=== PATIENT | female | born 1985 | race Caucasian/White ===

== ENCOUNTER → 2018-04-10 08:11 | Outpatient (CLI) | payer BC, SELFPAY ==
--- NOTE | 2018-04-10 08:13 | US_ITS ---
US OB transvaginal HISTORY: ITS.REASON: US OB Dates ORDERING PHYSICIAN: Mejia Morales MD PATIENT AGE: 32 years COMPARISON: None FINDINGS: There is a single live fetus with an average ultrasound age of 13 weeks 0 days. BPD 30 weeks 3 days, HC 30 weeks 1 day, abdominal circumference 12 weeks 4 days, FL 30 weeks 1 day. [place]-rump length 12 weeks 1 day. heart and body motion is noted. Placenta is noted forming anteriorly. Heart rate is 151 bpm. IMPRESSION: Live IUP with an average ultrasound age of 13 weeks and 0 days with an estimated due date of 10/16/2018
== END ==
PROVIDERS: PCP Internal Medicine Adolescent Medicine; Visit Provider Nurse Practitioner Obstetrics & Gynecology
DX: O26.841 Uterine size-date discrepancy, first trimester (principal)
CPT/HCPCS: 76817

== ENCOUNTER → 2018-06-07 10:16 | Outpatient (CLI) | payer BC, SELFPAY ==
--- NOTE | 2018-06-07 10:18 | US_ITS ---
US OB /maternal detail: INDICATION: ITS.REASON: US OB Complete ORDERING PHYSICIAN: Mejia Morales MD PATIENT AGE: 32 years TECHNIQUE: ultrasound transabdominal scanning. COMPARISON: No previous relevant studies. FINDINGS: Single viable intrauterine gestation. Cephalic position. Placenta: Anterior High placenta grade 1. There is average amount fluid. The cervix appears satisfactory. Closed and measuring 6 cm in length. The increased cervical length couldn't be artificially created from a full urinary bladder Complete survey performed and was unremarkable on the submitted images as in PACS. No discrete anomalies identified on survey imaging by technologist. Active fetus. Three-vessel cord with satisfactory umbilical cord insertion. 4- chamber heart noted. Survey of brain & ventricles unremarkable. Face and neck survey unremarkable. Diaphragm and chest views unremarkable. Abdomen: Both kidneys noted and unremarkable. Stomach noted and satisfactory. Spine: Survey of the spine satisfactory with no anomalies identified nor imaged. Both arms and legs noted. Amniotic Fluid: Adequate. Maternal adnexa: No significant findings. Measurements: Average ultrasound age 20w5d. Gestational Age 21w2d. Estimated due date by ultrasound age 0510/20/2018. Estimated weight 369 grams. BPD = 21w0d OFD = 21w2d HC = 20w3d AC = 21w0d FL = 20w3d Growth Percentile= 17 percentile Heart Rate = 138 Cerebellum = 21w3d Humerus = 20w0d HC/AC is 1.13 (`.06-1.25). CI is 77% (70-86%). FL/BPD is 67%. FL/AC is 21% (20-24%). IMPRESSION: There is a single live fetus which is in cephalic presentation. Average ultrasound age is 20 weeks and 5 days. Fetus is active with no obvious anomalies. All parameters correlate. Please see above for details
== END ==
PROVIDERS: PCP Internal Medicine Adolescent Medicine; Visit Provider Nurse Practitioner Obstetrics & Gynecology
DX: Z36.0 Encounter for antenatal screening for chromosomal anomalies (principal)
CPT/HCPCS: 76811

== ENCOUNTER → 2018-07-17 08:10 | Outpatient (CLI) | payer BC, SELFPAY ==
[2018-07-17 09:04] LABS: Glucose,Fasting 90 mg/dL (60-105)
[2018-07-17 09:59] LABS: Basophils % 0.4 % (0.1-2.0); Eosinophils # 0.1 K/mm3 (0.0-0.4); Hematocrit 36.3 % (37.0-47.0); Hemoglobin 11.3 g/dL (12.2-16.2); Lymphocytes # 1.5 K/mm3 (0.7-4.5); Lymphocytes % 17.7 % (10-50); Mean Corpuscular HGB Conc 31.1 g/dL (31.8-35.4); Mean Corpuscular Hemoglobin 27.6 pg (27.0-31.2); Mean Corpuscular Volume 88.9 fl (81-99); Mean Platelet Volume 7.1 fl (7.4-10.4); Monocytes # 0.4 K/mm3 (0.1-1.0); Monocytes % 4.4 % (1.7-9.3); Neutrophils # 6.4 K/mm3 (1.8-7.8); Neutrophils % 76.5 % (37.0-80.0); Platelet Count 308 K/mm3 (142-424); Red Blood Count 4.08 M/mm3 (4.20-5.40); Red Cell Distribution Width 14.6 % (11.5-17.5); White Blood Count 8.4 K/mm3 (4.8-10.8)
[2018-07-17 10:57] LABS: Glucose 1 Hour 154 mg/dL (74-106)
[2018-07-18 15:26] LABS: Rapid Plasma Reagin Ab Titer Non Reactive (NonRea<1:1); Rubella Antibodies, IgG <0.90 index (Immune >0.99)
[2018-07-18 15:27] LABS: HIV Screen 4th Generation wRfx Non Reactive (Non Reactive)
[2018-07-19 09:48] LABS: Hepatitis B Surface Antigen Negative (Negative); Hepatitis C Antibody <0.1 s/co ratio (0.0-0.9)
== END ==
PROVIDERS: Visit Provider Nurse Practitioner Obstetrics & Gynecology
DX: Z34.90 Encounter for supervision of normal pregnancy, unspecified, unspecified trimester (principal); Z3A.01 Less than 8 weeks gestation of pregnancy
CPT/HCPCS: 36415; 82951; 85025; 86592; 86703; 86762; 86850; 87340; 87380; G0432

== ENCOUNTER → 2018-07-20 08:03 | Outpatient (CLI) | payer BC, SELFPAY ==
[2018-07-20 08:27] LABS: Glucose,Fasting 75 mg/dL (60-105)
[2018-07-20 09:49] LABS: Glucose 1 Hour 184 mg/dL (74-106)
[2018-07-20 11:31] LABS: Glucose 2 Hour 149 mg/dL (74-106)
[2018-07-20 12:09] LABS: Glucose 3 Hour 116 mg/dL (74-106)
== END ==
PROVIDERS: Visit Provider Nurse Practitioner Obstetrics & Gynecology
DX: O99.814 Abnormal glucose complicating childbirth (principal)
CPT/HCPCS: 36415; 82951

== ENCOUNTER → 2018-09-19 16:54 | Outpatient (CLI) | payer BC, SELFPAY | LOC: LAB 16:55 → LAB.DROPOF 09-20 10:00 | PROVIDERS: Visit Provider Nurse Practitioner Obstetrics & Gynecology | DX: Z34.90 Encounter for supervision of normal pregnancy, unspecified, unspecified trimester (principal) | CPT/HCPCS: 86403 ==

== ENCOUNTER 2018-09-26 19:16 | Inpatient (IN) ==
[2018-09-26 19:48] VITALS: BP 159/82
[2018-09-26 19:51] LABS: Microscopic, Urine URINE MICROSCOPIC (MICROSCOPIC)
[2018-09-26 19:52] LABS: Appearance,Urine CLEAR (Clear); Bilirubin,Urine Negative (Negative); Blood, Urine TRACE-L (Negative); Color,Urine YELLOW (Yellow); Glucose,Urine (UA) Negative (Negative); Ketones,Urine Negative (Negative); Leukocyte Esterase,Urine Negative (Negative); Protein,Urine Negative (Negative); Urobilinogen,Urine 0.2 EU/dl (0.2)
[2018-09-26 20:03] LABS: Amphetamine/Metha Screen,Urine Negative ng/mL (<1000); Barbiturates Screen,Urine Negative ng/mL (<200); Benzodiazepines Screen,Urine Negative ng/mL (<200); Cannabinoid Screen,Urine Negative ng/mL (<50); Cocaine Screen,Urine Negative ng/mL (<300); Methadone Screen,Urine Negative ng/mL (<300); Opiate Screen,Urine Negative ng/mL (<300); Phencyclidine Screen,Urine Negative ng/mL (<25)
[2018-09-26 20:22] LABS: Bacteria,Urine 1+ /lpf
[2018-09-26 21:24] LABS: Basophils % 0.2 % (0.1-2.0); Eosinophils % 0.5 % (0.1-12.0); Hematocrit 34.3 % (37.0-47.0); Hemoglobin 11.5 g/dL (12.2-16.2); Lymphocytes # 1.4 K/mm3 (0.7-4.5); Lymphocytes % 18.9 % (10-50); Mean Corpuscular HGB Conc 33.4 g/dL (31.8-35.4); Mean Corpuscular Hemoglobin 28.1 pg (27.0-31.2); Mean Corpuscular Volume 84.3 fl (81-99); Mean Platelet Volume 7.5 fl (7.4-10.4); Monocytes # 0.5 K/mm3 (0.1-1.0); Neutrophils # 5.6 K/mm3 (1.8-7.8); Neutrophils % 74.4 % (37.0-80.0); Platelet Count 293 K/mm3 (142-424); Red Blood Count 4.07 M/mm3 (4.20-5.40); Red Cell Distribution Width 14.5 % (11.5-17.5); White Blood Count 7.6 K/mm3 (4.8-10.8)
--- NOTE | 2018-09-27 00:16 | Procedure Note ---
- Delivery Note Delivery Date:: 09/26/18 Delivery Time:: 23:52 Anesthesia Type: None Was labor medically induced?: No Induction method: none Infant delivered prior to 39 weeks?: Yes Justification for early elective delivery:: Active Labor Gender: Male at 1 minute: 8 at 5 minutes: 9 Delivery Procedure:: She is a 33-year-old 4 para 2 aborta 1 at 37 and 1 weeks gestational age. She ruptured membranes early in the evening and this was confirmed area She progressed rapidly to full dilation and delivered spontaneously a liveborn male child at 11:52 PM on the evening of September 26, 2018. On deliver the head the anterior shoulder then delivered followed by the rest the 's body atraumatically. The cord was clamped and cut and the baby was placed on the mother's abdomen for further care. The nurses assigned Apgars of 8 at 1 minute and 9 at 5 minutes. We then obtained cord blood as well as cord pH. Using gentle traction on the cord and countertraction the fundus I was able to easily deliver the placenta intact. It had a normal three-vessel cord. She had a small second-degree perineal laceration that was repaired with 3-0 Vicryl Rapide suture to the superficial tissues and 2-0 Vicryl suture to the deep tissues. She has B+ blood, she is rubella immune and was group A streptococcus negative. She plans to breast-feed. Her motor driver is Dr. Luciano. Estimated blood loss was approximately 400 cc. Laceration:: vaginal Placental Delivery Description: Spontaneous
[2018-09-27 06:42] LABS: Hematocrit 34.7 % (37.0-47.0); Hemoglobin 11.3 g/dL (12.2-16.2)
--- NOTE | 2018-09-27 08:50 | Progress Note ---
Internal Medicine - PN: Subj *Date: 09/27/18 *Time: 08:48 Interval history: She is doing very well this morning. She is eating and drinking and ambulating. She is breast-feeding. Her lochia is normal. Exam Vital signs and Labs for Last 24 Hours: Temp Pulse Resp BP Pulse Ox 99.4 F 84 18 159/82 H 97 09/26/18 19:46 09/26/18 19:46 09/26/18 19:46 09/26/18 19:46 09/26/18 19:46 Laboratory Results - last 24 hr 09/26/18 19:25: Urine Color Yellow, Urine Appearance Clear, Urine pH 6.0, Ur Specific [place] 1.010, Urine Protein Negative, Urine Glucose (UA) Negative, Urine Ketones Negative, Urine Blood Trace-l, Urine Nitrate Negative, Urine Bilirubin Negative, Urine Urobilinogen 0.2, Ur Leukocyte Esterase Negative, Urine RBC 3-5, Ur Squamous Epith Cells 3-5, Urine Bacteria 1+ 09/26/18 19:25: Urine Opiates Screen Negative, Urine Methadone Screen Negative, Ur Barbituates Screen Negative, Ur Phencyclidine Scrn Negative, Ur Amphetamines Screen Negative, U Benzodiazepines Scrn Negative, Urine Cocaine Screen Negative, U Marijuana (THC) Screen Negative 09/26/18 19:35: Membrane Rupture Positive A 09/26/18 21:00: WBC 7.6, RBC 4.07 L, Hgb 11.5 L, Hct 34.3 L, MCV 84.3, MCH 28.1, MCHC 33.4, RDW 14.5, Plt Count 293, MPV 7.5, Neut % (Auto) 74.4, Lymph % (Auto) 18.9, [place] % (Auto) 6.0, Eos % (Auto) 0.5, Baso % (Auto) 0.2, Neut # (Auto) 5.6, Lymph # (Auto) 1.4, [place] # (Auto) 0.5, Eos # (Auto) 0.0, Baso # (Auto) 0.0 09/26/18 21:00: Blood Type B Positive, Antibody Screen Negative 09/27/18 00:31: Cord ABG pH 7.37 09/27/18 06:25: Hgb 11.3 L, Hct 34.7 L I & O for Last 24 hours: Intake & Output 09/24/18 09/25/18 09/26/18 09/27/18 11:59 11:59 11:59 11:59 Weight 197 lb - Constitutional no acute distress Assessment and Plan (1) Normal delivery at term Current visit: Yes Status: Acute Category: Medical Code(s): O80 - Encounter for full-term uncomplicated delivery - Assessment and plan all Dx Assessment and Plan for all problems:: She is doing well this morning. We will see how she does over the next 24 hours. If the baby is ready to go then we will send her home tomorrow. Otherwise we will send her home in 48 hours.
--- NOTE | 2018-09-28 09:18 | Discharge Summary ---
General - General Admission date:: 09/26/18 Discharge date: 09/28/18 HPI HPI: She is a 33-year-old 4 para 3 aborta 1 who was 37 weeks gestational age. She came in in active labor with ruptured membranes. Hospital Course Hospital Course: She rapidly progressed to full dilation and delivered spontaneously a liveborn male child at 11:52 PM in the evening of September 26, 2018. The baby was a liveborn male child with Apgars of 8 at 1 minute and 9 at 5 minutes. He weighed 5 pounds 1 ounce and was 18 inches long. She has done well and has remained afebrile throughout her hospitalization. She is eating and drinking and ambulate in. She is breast- feeding. She is discharged home to follow-up with me in approximately 2 weeks time. She will continue with her vitamins and iron. Her condition on discharge is stable. Objective Vital signs: Temp Pulse Resp BP Pulse Ox 99.4 F 84 18 159/82 H 97 09/26/18 19:46 09/26/18 19:46 09/26/18 19:46 09/26/18 19:46 09/26/18 19:46 no acute distress DS: Diagnosis - Discharge Diagnosis (1) Normal delivery at term Status: Acute Discharge Plan - Patient Discharge Instructions ACTIVITY: No heavy lifting DIET: continue same diet - Follow up Plan Disposition: Home, Self-Half-Way Medications: Home Medications Medication Instructions Recorded Confirmed Type cod liver oil capsule 1 cap PO DAILY 05/02/18 09/26/18 History lactobacillus combination no.6 4 1 cap PO DAILY tab 05/02/18 09/27/18 History billion cell tablet 1 tab PO DAILY 05/02/18 09/26/18 History vitamin,calcium,xddjbtgu-vonz-xbyin acid tablet Ferrous Sulfate 325 mg PO DAILY 09/26/18 09/26/18 History Prescriptions/Medication Reconciliation: Continued vitamin,calcium,pqauieud-cxue-zbkhj acid tablet 1 tab PO DAILY cod liver oil capsule 1 cap PO DAILY lactobacillus combination no.6 4 billion cell tablet 1 cap PO DAILY tab Ferrous Sulfate 325 mg PO DAILY
== END 2018-09-28 18:35 | disposition home or self-care (01) | DRG 807 ==
LOC: OBOUT 19:16 → OB 19:20
PROVIDERS: ADMIT Nurse Practitioner Obstetrics & Gynecology; ATTEND Nurse Practitioner Obstetrics & Gynecology

== ENCOUNTER 2019-10-25 02:03 | Emergency (ER) | payer BC, SELFPAY ==
[2019-10-25 02:22] VITALS: BP 155/101; PULSE 113; RESP 16; TEMP 37; O2SAT 99; BMI 30.5
--- NOTE | 2019-10-25 02:34 | CT_ITS ---
PROCEDURE: CT LOWER LEG LT W CON CLINICAL HISTORY: abscess Pain and edema and swelling in the inner mid thigh, redness and swelling, hot mass with possible abscess COMPARISON: No exams were available for comparison TECHNIQUE: 120 mL Optiray 350 Axial images obtained with sagittal and coronal reformats. All CT scans at the facility use one or more dose reduction, viz: automated exposure control, ma/kV adjustment per patient size (including targeted exams where dose is matched to indication, i.e. head), or iterative reconstruction technique. FINDINGS: Axial images are obtained from the mid pelvic region to the upper tib fib area. Contrast was utilized. There is some mild subcutaneous soft tissue swelling in the mid medial thigh. No abscess evident. No soft tissue mass. No bony destructive process. A BB was used to marked the area of greatest induration showing some cutaneous thickening. There is also some minimal subcutaneous stranding of the fat laterally at this level. No muscular mass evident. There are few scattered small nodes in the inguinal region. Small fluid collection noted in the region of the cervix on the left and could be due to a prominent nabothian cyst measuring 13 mm IMPRESSION: Soft tissue swelling with stranding of the subcutaneous fat and thickening of the scan in the mid and lower thigh region without obvious abscess. There is also some mild stranding of the subcutaneous fat in the mid thigh laterally Dictated by: Christian Blanc MD 10/25/2019 05:59 Electronically signed by Christian Blanc MD in [place] 10/25/2019 05:59
[2019-10-25 02:38] LABS: Microscopic, Urine URINE MICROSCOPIC (MICROSCOPIC)
[2019-10-25 02:41] LABS: Appearance,Urine CLEAR (Clear); Bilirubin,Urine Negative (Negative); Blood, Urine TRACE-I (Negative); Color,Urine YELLOW (Yellow); Glucose,Urine (UA) Negative (Negative); Ketones,Urine Negative (Negative); Leukocyte Esterase,Urine Negative (Negative); Nitrate,Urine Negative (Negative); Protein,Urine Negative (Negative); Specific Gravity, Urine 1.025 (1.005-1.030); Urobilinogen,Urine 0.2 EU/dl (0.2)
[2019-10-25 02:44] LABS: Basophils # 0.1 K/mm3 (0-0.2); Basophils % 1.3 % (0.1-2.0); Eosinophils # 0.2 K/mm3 (0.0-0.4); Hematocrit 41.6 % (37.0-47.0); Hemoglobin 13.3 g/dL (12.2-16.2); Lymphocytes # 1.3 K/mm3 (0.7-4.5); Lymphocytes % 19.1 % (10-50); Mean Corpuscular Volume 90.5 fl (81-99); Mean Platelet Volume 7.6 fl (7.4-10.4); Monocytes # 0.3 K/mm3 (0.1-1.0); Monocytes % 4.7 % (1.7-9.3); Neutrophils # 4.9 K/mm3 (1.8-7.8); Platelet Count 292 K/mm3 (142-424); Red Cell Distribution Width 13.5 % (11.5-17.5); White Blood Count 6.8 K/mm3 (4.8-10.8)
[2019-10-25 02:46] LABS: Bacteria,Urine Trace /lpf; Urine Pregnancy, HCG Qual. Negative (Negative)
[2019-10-25 02:51] LABS: Alanine Aminotransferase 23 U/L (12-78); Albumin/Globulin Ratio 1.4 (1.1-1.8); Alkaline Phosphatase 114 U/L (38-126); Anion Gap 12.3 mEq/L (5-15); Aspartate Amino Transferase 23 U/L (14-36); Bilirubin,Total 0.6 mg/dl (0.2-1.3); Blood Urea Nitrogen 14 mg/dl (7-17); Calcium 9.8 mg/dl (8.4-10.2); Carbon Dioxide 29 mmol/L (22.0-30.0); Chloride 102 mmol/L (98-107); Creatinine Clearance Estimated 137 mL/min (50-200); Estimated Glomerular Filt Rate 82 ml/min (>60); GFR (African American) 99 ML/MIN (>60); Globulin 3.7 g/dL (1.3-3.2); Glucose 132 mg/dl (74-100); Potassium 3.3 mmoL/L (3.5-5.1); Sodium 140 mmol/L (136-145); Total Protein,Serum 8.7 g/dl (6.3-8.2)
[2019-10-25 03:10] LABS: Erythrocyte Sedimentation Rate 17 mm/hr (0-20)
--- NOTE | 2019-10-25 04:05 | HMH.EDSKAF ---
ED Disposition Clinical Impression: Cellulitis Qualifiers: Site of cellulitis: extremity Site of cellulitis of extremity: lower extremity Laterality: left Qualified Code(s): L03.116 - Cellulitis of left lower limb Disposition: Home, Self-Care Condition on Discharge: Good Instructions: Cellulitis Additional Instructions: use meds and see pcp for follow up Prescriptions: Sulfamethoxazole/Trimethoprim [Bactrim DS tablet] 1 each PO BID #14 tab Transmission Status: Pending to [facility] Minocycline HCl [Minocycline HCl 100mg Tab*] 100 mg PO BID #20 tab Transmission Status: Pending to [facility] Referrals: Jordin Shabazz MD [Primary Care Provider] - - Critical Care Critical Care Time: No Attestation: On 10/25/19, the high probability of a clinically significant, sudden or life threatening deterioration of the following system(s) required my full and direct attention, intervention and personal management. The time I documented below is in addition to time spent performing reported procedures but includes the following listed in this critical care notation. Medical Decision Making - Medical Records Medical records reviewed: Yes: I reviewed the patient's medical records. - [place] Inquiry Pt receiving controlled substance: No Vital Signs: 10/25/19 02:22 Temperature 98.6 F Temperature Source Oral Pulse Rate [Right] 113 H Respiratory Rate 16 Blood Pressure [Right Arm] 155/101 H Blood Pressure Mean [Right Arm] 119 Blood Pressure Source [Right Arm] Automatic Cuff Blood Pressure Position [Right Arm] Sitting 02 Sat by Pulse Oximetry 99 Oxygen Delivery Method Room Air - Lab Data Lab results reviewed: Yes: I reviewed the patient's lab results. Lab Results 10/25/19 02:33: Urine Color Yellow, Urine Appearance Clear, Urine pH 6.0, Ur Specific [place] 1.025, Urine Protein Negative, Urine Glucose (UA) Negative, Urine Ketones Negative, Urine Blood Trace-i, Urine Nitrate Negative, Urine Bilirubin Negative, Urine Urobilinogen 0.2, Ur Leukocyte Esterase Negative, Urine WBC 3-5, Ur Squamous Epith Cells 5-10, Urine Bacteria Trace 10/25/19 02:33: WBC 6.8, RBC 4.60, Hgb 13.3, Hct 41.6, MCV 90.5, MCH 29.0, MCHC 32.0, RDW 13.5, Plt Count 292, MPV 7.6, Neut % (Auto) 72.0, Lymph % (Auto) 19.1, [place] % (Auto) 4.7, Eos % (Auto) 3.0, Baso % (Auto) 1.3, Neut # (Auto) 4.9, Lymph # (Auto) 1.3, [place] # (Auto) 0.3, Eos # (Auto) 0.2, Baso # (Auto) 0.1, ESR 17 10/25/19 02:33: Urine HCG, Qual Negative 10/25/19 02:33: Sodium 140, Potassium 3.3 L, Chloride 102, Carbon Dioxide 29, Anion Gap 12.3, BUN 14, Creatinine 0.80, Estimated Creat Clear 137, Estimated GFR 82, Est GFR ( Amer) 99, Glucose 132 H, Calcium 9.8, Total Bilirubin 0.6, AST 23, ALT 23, Alkaline Phosphatase 114, C-Reactive Protein 43.0 H, Total Protein 8.7 H, Albumin 5.0, Globulin 3.7 H, Albumin/Globulin Ratio 1.4 Result diagrams: 10/25/19 02:33 10/25/19 02:33 Orders (Tests/Meds): ED MEDICATIONS Generic Name Dose Route Start Last Admin Trade Name Freq PRN Reason Stop Dose Admin Sodium Chloride 1,000 mls @ 999 mls/hr 10/25/19 02:45 10/25/19 02:53 Sod Chlor 0.9% 1000ml Bag IV 10/25/19 03:45 999 mls/hr .Q1H1M ANUEL Administration Discontinued Medications Generic Name Dose Route Start Last Admin Trade Name Freq PRN Reason Stop Dose Admin Acetaminophen/Codeine Phosphate 1 karma 10/25/19 06:29 Acetaminophen W/Codeine #3 Take Home Pack (6) PO 10/25/19 06:30 ONCE ONE Vancomycin HCl 1,750 mg/ 250 mls @ 125 mls/hr 10/25/19 04:07 10/25/19 04:15 Sodium Chloride IV 10/25/19 06:06 125 mls/hr ONCE ONE Administration Protocol Ioversol 120 ml 10/25/19 04:02 10/25/19 04:03 Rad-Optiray 350 150ml Vial IV 10/25/19 04:03 120 ml ONCE ONE Administration Ketorolac Tromethamine 30 mg 10/25/19 02:33 10/25/19 02:53 Toradol 30mg/Ml Vial IV 10/25/19 02:34 30 mg ONCE ONE Administration Sodium Chlorid
[2019-10-25 06:45] VITALS: BP 135/75; PULSE 66; RESP 14; TEMP 37; O2SAT 100
== END 2019-10-25 06:48 | disposition home or self-care (01) ==
PROVIDERS: Emergency Provider Emergency Medicine; PCP Internal Medicine Adolescent Medicine
DX: L03.116 Cellulitis of left lower limb (principal); J45.909 Unspecified asthma, uncomplicated
CPT/HCPCS: 73701; 80053; 81001; 81025; 85025; 85651; 86140; 96365; 96366; 96367; 96375; 99283; J3370; Q9967

== ENCOUNTER → 2019-10-28 08:10 | Outpatient (CLI) | payer BC, SELFPAY ==
--- NOTE | 2019-10-28 08:19 | XR_ITS ---
PROCEDURE: XR FOOT WT BEARING LT 3V CLINICAL INDICATION: pain COMPARISON: FTL3 FOOT-LT-3 VIEWS from 12/03/2015 FTL3 FOOT-LT-3 VIEWS from 12/24/2015 FINDINGS: No fracture or dislocation. No lytic or blastic change. There is normal mineralization. The joint spaces are well-preserved. No significant degenerative/arthritic changes. No erosive changes evident. Other findings:None. IMPRESSION: Negative left foot Dictated by: Christian Blanc MD 10/28/2019 09:04 Electronically signed by Christian Blanc MD in [place] 10/28/2019 09:04
--- NOTE | 2019-10-28 08:19 | XR_ITS ---
PROCEDURE: XR FOOT WT BEARING RT 3V CLINICAL INDICATION: pain COMPARISON: FTL3 FOOT-LT-3 VIEWS from 12/03/2015 FTL3 FOOT-LT-3 VIEWS from 12/24/2015 FINDINGS: No fracture or dislocation. No lytic or blastic change. There is normal mineralization. The joint spaces are well-preserved. No significant degenerative/arthritic changes. No erosive changes evident. Other findings:None. IMPRESSION: Negative right Dictated by: Christian Blanc MD 10/28/2019 09:03 Electronically signed by Christian Blanc MD in [place] 10/28/2019 09:03
== END ==
PROVIDERS: PCP Internal Medicine Adolescent Medicine; Visit Provider Podiatrist
DX: M77.41 Metatarsalgia, right foot (principal); M77.51 Other enthesopathy of right foot and ankle; G57.61 Lesion of plantar nerve, right lower limb
CPT/HCPCS: 73630

== ENCOUNTER → 2020-01-24 13:34 | Outpatient (CLI) | payer BC, SELFPAY ==
[2020-01-24 13:37] LABS: Microscopic, Urine URINE MICROSCOPIC (MICROSCOPIC)
[2020-01-24 13:51] LABS: Basophils % 0.4 % (0.1-2.0); Eosinophils # 0.1 K/mm3 (0.0-0.4); Hematocrit 38.7 % (37.0-47.0); Hemoglobin 12.6 g/dL (12.2-16.2); Lymphocytes # 1.3 K/mm3 (0.7-4.5); Lymphocytes % 21.6 % (10-50); Mean Corpuscular HGB Conc 32.6 g/dL (31.8-35.4); Mean Corpuscular Hemoglobin 29.1 pg (27.0-31.2); Mean Corpuscular Volume 89.2 fl (81-99); Mean Platelet Volume 7.1 fl (7.4-10.4); Monocytes # 0.4 K/mm3 (0.1-1.0); Neutrophils # 4.2 K/mm3 (1.8-7.8); Neutrophils % 70.8 % (37.0-80.0); Platelet Count 296 K/mm3 (142-424); Red Blood Count 4.33 M/mm3 (4.20-5.40); Red Cell Distribution Width 13.3 % (11.5-17.5); White Blood Count 5.9 K/mm3 (4.8-10.8)
[2020-01-24 14:09] LABS: Hemoglobin A1C 5.8 % (4.0-6.0)
[2020-01-24 14:11] LABS: Alanine Aminotransferase 19 U/L (12-78); Albumin Level 4.4 g/dl (3.5-5.0); Albumin/Globulin Ratio 1.5 (1.1-1.8); Alkaline Phosphatase 123 U/L (38-126); Anion Gap 12.3 mEq/L (5-15); Aspartate Amino Transferase 20 U/L (14-36); Bilirubin,Total 0.5 mg/dl (0.2-1.3); Blood Urea Nitrogen 11 mg/dl (7-17); Calcium 9.6 mg/dl (8.4-10.2); Carbon Dioxide 27 mmol/L (22.0-30.0); Chloride 103 mmol/L (98-107); Estimated Glomerular Filt Rate 95 ml/min (>60); GFR (African American) 115 ML/MIN (>60); Glucose 105 mg/dl (74-100); Potassium 4.3 mmoL/L (3.5-5.1); Sodium 138 mmol/L (136-145); Total Protein,Serum 7.4 g/dl (6.3-8.2)
[2020-01-24 14:27] LABS: 25-OH Vitamin D, Total 26.3 ng/mL (30-100)
[2020-01-24 14:29] LABS: Free Thyroxine Index 2.7 ug/dL (5.93-13.13); T4 (Thyroxine) 9.3 ug/dl (5.53-11.0); Triiodothryronine (T3) Uptake 29 % (23.5-40.5)
[2020-01-24 14:30] LABS: HCG,Quantitative < 2 mIU/ml (0-5.42)
[2020-01-24 14:42] LABS: Thyroid Stimulating Hormone 1.57 uIU/mL (0.465-4.68)
[2020-01-24 15:02] LABS: Vitamin B12 312 pg/mL
[2020-01-24 15:29] LABS: Appearance,Urine CLEAR (Clear); Bilirubin,Urine Negative (Negative); Blood, Urine Negative (Negative); Color,Urine YELLOW (Yellow); Glucose,Urine (UA) Negative (Negative); Ketones,Urine Negative (Negative); Leukocyte Esterase,Urine Negative (Negative); Nitrate,Urine Negative (Negative); PH,Urine 5.5 (5.0-8.5); Protein,Urine Negative (Negative); Urobilinogen,Urine 0.2 EU/dl (0.2)
[2020-01-24 15:38] LABS: Squamous Epithelial Cell,Urine Occasional #/hpf (0-5)
== END ==
PROVIDERS: Visit Provider Internal Medicine Adolescent Medicine
DX: R35.8 Other polyuria (principal); R63.1 Polydipsia; R53.81 Other malaise; R53.83 Other fatigue; R35.0 Frequency of micturition
CPT/HCPCS: 36415; 80053; 81001; 82306; 82607; 83036; 84436; 84443; 84479; 84702; 85025

== ENCOUNTER → 2020-02-05 12:11 | Outpatient (CLI) | payer BC, SELFPAY | PROVIDERS: PCP Internal Medicine Adolescent Medicine; Visit Provider Internal Medicine Adolescent Medicine | DX: R53.83 Other fatigue (principal); G47.00 Insomnia, unspecified; R51 Headache | CPT/HCPCS: G0399 ==

== ENCOUNTER → 2022-09-26 13:58 | Outpatient (CLI) | payer OTHER, SELFPAY ==
--- NOTE | 2022-09-26 | ECG_ITS ---
APPROVED REPORT Exam: Resting ECG HR:72 bpm ECG Measurements Heart Rate 72 AXES PA 144 P 11 QRSd 95 QRS 105 QT 395 T 62 QTc 419 Conclusion SINUS RHYTHM RIGHT AXIS DEVIATION [QRS AXIS > 100] ABNORMAL ECG UNCONFIRMED REPORT Electronically signed by : Jordin Shabazz MD 09/26/2022 20:12:03
== END ==
LOC: RT 14:02
PROVIDERS: PCP Family Medicine; Visit Provider Nurse Practitioner Family
DX: R55 Syncope and collapse (principal)
CPT/HCPCS: 93005

== ENCOUNTER → 2023-02-15 13:02 | Outpatient (CLI) | payer OTHER, SELFPAY | PROVIDERS: PCP Family Medicine; Visit Provider Physician Assistant | DX: G47.33 Obstructive sleep apnea (adult) (pediatric) (principal); R06.83 Snoring | CPT/HCPCS: G0399 ==

== ENCOUNTER 2023-04-10 10:01 | Emergency (ER) | payer OTHER, SELFPAY ==
[2023-04-10 10:15] VITALS: BP 136/70; PULSE 89; RESP 18; TEMP 36.9; O2SAT 99; BMI 34.4
--- NOTE | 2023-04-10 10:18 | EXP.UTC ---
Discharge Plan Disposition Patient Disposition: Home, Self-Care Condition: Good Prescriptions Prescriptions: No Action Trelegy Ellipta 100-62.5-25 mcg blister with device 1 inh inhalation DAILY cholecalciferol (vitamin D3) 125 mcg (5,000 unit) capsule 125 mcg PO DAILY cyanocobalamin (vitamin B-12) 500 mcg tablet, sublingual 500 mcg sublingual DAILY albuterol sulfate 2.5 mg /3 mL (0.083 %) solution for nebulization 2.5 mg inhalation NEEDED PRN (Reason: asthma ) fluticasone furoate-vilanterol [Breo Ellipta] 100-25 mcg/dose blister with device 1 ea INHALATION DAILY Referrals Follow up/Referrals: Lu Luciano MD [Primary Care Provider] - See instructions Activity Restrictions/Add. Instructions Additional Instructions/Restrictions: Rest the extremities, Elevate the extremity as tolerated while you are resting. Take the medication as directed. Follow up with Dr. England (orthopedics) if you continue to have symptoms. I put in a referral but you need to call his office and schedule an appointment. Follow up with your regular doctor. GO TO THE ER FOR ANY WORSENING SYMPTOMS Clinical Impressions Clinical Impression: Knee pain, bilateral Instructions Patient Instructions: DI for Knee Pain Discharge ED Provider: [facility] General Stated complaint: pain in both knees, no accident Time Seen by Provider: 04/10/23 10:18 History of Present Illness Provider Complaint: She states that for the past 3 days she has had bilateral knee pain. She denies any injury or trauma. Related Data Home Medications Medication Instructions Recorded Confirmed cholecalciferol (vitamin D3) 125 125 mcg PO DAILY vitamins 02/23/23 04/13/23 mcg (5,000 unit) capsule cyanocobalamin (vitamin B-12) 500 500 mcg sublingual DAILY vitamins 02/23/23 04/13/23 mcg sublingual tablet albuterol sulfate 2.5 mg/3 mL 2.5 mg inhalation NEEDED PRN 04/10/23 04/13/23 (0.083 %) solution for nebulization asthma fluticasone furoate 100 1 ea inhalation DAILY asthma 04/10/23 04/13/23 mcg-vilanterol 25 mcg/dose inhalation powder (Breo Ellipta) fluticasone fur. 100 mcg-umeclid 1 inh inhalation DAILY 04/13/23 04/13/23 62.5 mcg-vilant 25 mcg inhalat.powder (Trelegy Ellipta) Allergies Allergy/AdvReac Type Severity Reaction Status Date / Time cefaclor Allergy Intermediate I-HIVES Verified 04/13/23 10:52 [facility] Disclaimer: The information contained in this section may have been updated after the patient was seen, as this information can be updated by other users. Medical History (Updated 04/13/23 @ 11:35 by Kermit Dwyer APRN) Asthma JOSE (obstructive sleep apnea) Surgical History (Updated 04/13/23 @ 11:13 by Cinthia Fried) Hx of nasal septoplasty Family History Other Alcoholism Cancer Coronary artery disease Diabetes Heart attack Social History Smoking Status: Current some day smoker alcohol intake: current substance use type: denies use current occupational status: employed Travel in the last 8 weeks: None household members: spouse housing: house marital status: ROS Obtained: Yes All systems reviewed & no additional complaints except as documented Constitutional Constitutional: Denies chills and Denies fever(s) Eyes Eyes: Denies eye discharge ENT Ears, Nose, Mouth, and Throat: Denies dizziness, Denies otalgia and Denies sore throat Cardiovascular Cardiovascular: Denies chest pain Respiratory Respiratory: Denies shortness of breath, Denies chest congestion, Denies cough, Denies stridor and Denies wheezing Gastrointestinal Gastrointestingal: Denies nausea or vomiting Musculoskeletal Musculoskeletal: Reports as per HPI Integumentary/Breasts Skin/Breast: Denies rash Neurologic Neurologic: Denies dizziness and Denies paresthes
[2023-04-10 10:56] VITALS: BP 136/70; PULSE 89; RESP 18; TEMP 36.9; O2SAT 99
== END 2023-04-10 10:56 | disposition home or self-care (01) ==
PROVIDERS: Emergency Provider Nurse Practitioner Family; PCP Family Medicine
DX: M25.561 Pain in right knee (principal); M25.562 Pain in left knee; J45.909 Unspecified asthma, uncomplicated; F17.210 Nicotine dependence, cigarettes, uncomplicated
CPT/HCPCS: 99203; 99212; G0463

== ENCOUNTER 2023-06-07 14:10 | Outpatient (CLI) | payer OTHER, SELFPAY ==
[2023-06-07 14:24] LABS: Basophils % 1.4 % (0.1-2.0); Eosinophils % 1.4 % (0.1-12.0); Hematocrit 38.9 % (37.0-47.0); Hemoglobin 12.3 g/dL (12.2-16.2); Lymphocytes # 0.8 K/mm3 (0.7-4.5); Mean Corpuscular HGB Conc 31.7 g/dL (31.8-35.4); Mean Corpuscular Hemoglobin 27.8 pg (27.0-31.2); Mean Corpuscular Volume 87.6 fl (81-99); Mean Platelet Volume 7.7 fl (7.4-10.4); Monocytes # 0.3 K/mm3 (0.1-1.0); Monocytes % 10.5 % (1.7-9.3); Neutrophils # 1.9 K/mm3 (1.8-7.8); Neutrophils % 61.7 % (37.0-80.0); Platelet Count 293 K/mm3 (142-424); Red Blood Count 4.44 M/mm3 (4.20-5.40); Red Cell Distribution Width 15.2 % (11.5-17.5)
[2023-06-12 00:05] LABS: D001-IgE D pteronyssinus <0.10 kU/L (Class 0); D002-IgE D farinae 0.15 kU/L (Class 0/I); E001-IgE Cat Dander <0.10 kU/L (Class 0); E005-IgE Dog Dander 0.22 kU/L (Class 0/I); E072-IgE Mouse Urine <0.10 kU/L (Class 0); I006-IgE Cockroach, German 0.58 kU/L (Class II); Immunoglobulin E, Total 95 IU/mL (6-495); M001-IgE Penicillium chrysogen <0.10 kU/L (Class 0); M002-IgE Cladosporium herbarum <0.10 kU/L (Class 0); M003-IgE Aspergillus fumigatus <0.10 kU/L (Class 0); M006-IgE Alternaria alternata <0.10 kU/L (Class 0); T001-IgE Maple/Box Elder 0.72 kU/L (Class II); T003-IgE Common Silver Birch 0.65 kU/L (Class II); T006-IgE Cedar, Mountain 0.64 kU/L (Class II); T007-IgE Oak, White 0.64 kU/L (Class II); T008-IgE Elm, American 0.74 kU/L (Class II); T010-IgE Walnut 0.79 kU/L (Class II); T011-IgE Maple Leaf Sycamore 0.79 kU/L (Class II); T014-IgE Cottonwood 0.79 kU/L (Class II); T015-IgE Ash, White 0.82 kU/L (Class II); T022-IgE Pecan, Hickory 0.68 kU/L (Class II); T070-IgE White Mulberry 0.51 kU/L (Class I); W001-IgE Ragweed, Short 1.27 kU/L (Class II); W011-IgE Thistle, Russian 0.78 kU/L (Class II); W014-IgE Pigweed, Common 0.68 kU/L (Class II)
== END 2023-06-07 23:59 ==
LOC: LAB 14:11
PROVIDERS: PCP Family Medicine; Visit Provider Internal Medicine Pulmonary Disease
DX: J30.9 Allergic rhinitis, unspecified (principal)
CPT/HCPCS: 36415; 82785; 85025; 86003

== ENCOUNTER 2023-09-08 09:12 | Outpatient (CLI) | payer OTHER, SELFPAY | END 2023-09-08 23:59 | disposition home or self-care (01) | LOC: RT 09:12 | PROVIDERS: PCP Family Medicine; Visit Provider Internal Medicine Pulmonary Disease | DX: R06.09 Other forms of dyspnea (principal) | CPT/HCPCS: 94060; 94618; 94726; 94729 ==

== ENCOUNTER 2023-10-18 09:07 | Outpatient (CLI) | payer OTHER, SELFPAY ==
[2023-10-18 09:31] LABS: Basophils # 0.1 K/mm3 (0-0.2); Basophils % 1.3 % (0.1-2.0); Eosinophils # 0.2 K/mm3 (0.0-0.4); Hematocrit 38.4 % (37.0-47.0); Hemoglobin 12.1 g/dL (12.2-16.2); Lymphocytes # 1.4 K/mm3 (0.7-4.5); Lymphocytes % 27.8 % (10-50); Mean Corpuscular HGB Conc 31.4 g/dL (31.8-35.4); Mean Corpuscular Hemoglobin 27.8 pg (27.0-31.2); Mean Corpuscular Volume 88.6 fl (81-99); Mean Platelet Volume 7.8 fl (7.4-10.4); Monocytes # 0.3 K/mm3 (0.1-1.0); Monocytes % 5.6 % (1.7-9.3); Neutrophils # 3.1 K/mm3 (1.8-7.8); Neutrophils % 62.4 % (37.0-80.0); Platelet Count 345 K/mm3 (142-424); Red Blood Count 4.33 M/mm3 (4.20-5.40); Red Cell Distribution Width 14.9 % (11.5-17.5)
[2023-10-18 09:58] LABS: Alanine Aminotransferase 36 U/L (12-78); Albumin Level 4.1 g/dl (3.5-5.0); Albumin/Globulin Ratio 1.4 (1.1-1.8); Alkaline Phosphatase 118 U/L (38-126); Anion Gap 13.8 mEq/L (5-15); Aspartate Amino Transferase 25 U/L (14-36); Bilirubin,Total 0.6 mg/dl (0.2-1.3); Blood Urea Nitrogen 12 mg/dl (7-17); Calcium 9.7 mg/dl (8.4-10.2); Carbon Dioxide 28 mmol/L (22.0-30.0); Chloride 104 mmol/L (98-107); Cholesterol 189 mg/dl (140-200); Estimated Glomerular Filt Rate 80 ml/min (>60); GFR (African American) 97 ML/MIN (>60); Globulin 2.9 g/dL (1.3-3.2); Glucose 100 mg/dl (74-100); HDL Cholesterol 95 mg/dl (40-60); Potassium 4.8 mmoL/L (3.5-5.1); Sodium 141 mmol/L (136-145); Triglycerides 64 mg/dl (30-150); VLDL Cholesterol 13 mg/dL (0-40)
[2023-10-18 10:10] LABS: Direct LDL Cholesterol 86.31 mg/dL (100-129)
[2023-10-18 10:12] LABS: 25-OH Vitamin D, Total 27.4 ng/mL (30-100)
[2023-10-18 10:31] LABS: Thyroid Stimulating Hormone 1.49 uIU/mL (0.465-4.68)
[2023-10-18 10:50] LABS: Vitamin B12 552 pg/mL (239-931)
[2023-10-18 11:12] LABS: Hemoglobin A1C 5.6 % (4.0-6.0)
== END 2023-10-18 23:59 | disposition home or self-care (01) ==
PROVIDERS: PCP Physician Assistant; Visit Provider Family Medicine
DX: N39.0 Urinary tract infection, site not specified (principal); E53.8 Deficiency of other specified B group vitamins; E55.9 Vitamin D deficiency, unspecified; Z79.899 Other long term (current) drug therapy
CPT/HCPCS: 36415; 80053; 80061; 82306; 82607; 83036; 84443; 85025; 87086

== ENCOUNTER 2023-12-06 10:16 | Outpatient (CLI) | payer OTHER, SELFPAY ==
[2023-12-06 10:50] LABS: Eosinophils # 0.1 K/mm3 (0.0-0.4); Eosinophils % 2.7 % (0.1-12.0); Hematocrit 36.9 % (37.0-47.0); Hemoglobin 11.6 g/dL (12.2-16.2); Lymphocytes # 1.6 K/mm3 (0.7-4.5); Lymphocytes % 37.6 % (10-50); Mean Corpuscular HGB Conc 31.4 g/dL (31.8-35.4); Mean Corpuscular Hemoglobin 28.3 pg (27.0-31.2); Mean Corpuscular Volume 90.1 fl (81-99); Mean Platelet Volume 7.9 fl (7.4-10.4); Monocytes # 0.4 K/mm3 (0.1-1.0); Monocytes % 8.8 % (1.7-9.3); Neutrophils # 2.2 K/mm3 (1.8-7.8); Neutrophils % 49.9 % (37.0-80.0); Platelet Count 280 K/mm3 (142-424); Red Blood Count 4.09 M/mm3 (4.20-5.40); Red Cell Distribution Width 14.8 % (11.5-17.5); White Blood Count 4.3 K/mm3 (4.8-10.8)
[2023-12-06 11:06] LABS: Alanine Aminotransferase 27 U/L (12-78); Albumin Level 3.8 g/dl (3.5-5.0); Albumin/Globulin Ratio 1.4 (1.1-1.8); Alkaline Phosphatase 100 U/L (38-126); Anion Gap 7.9 mEq/L (5-15); Aspartate Amino Transferase 21 U/L (14-36); Bilirubin,Total 0.6 mg/dl (0.2-1.3); Blood Urea Nitrogen 13 mg/dl (7-17); Calcium 9.1 mg/dl (8.4-10.2); Carbon Dioxide 27 mmol/L (22.0-30.0); Chloride 108 mmol/L (98-107); Estimated Glomerular Filt Rate 80 ml/min (>60); GFR (African American) 97 ML/MIN (>60); Globulin 2.8 g/dL (1.3-3.2); Glucose 117 mg/dl (74-100); Potassium 3.9 mmoL/L (3.5-5.1); Sodium 139 mmol/L (136-145); Total Protein,Serum 6.6 g/dl (6.3-8.2)
[2023-12-06 11:41] LABS: HCG,Quantitative < 2 mIU/ml (0-5.42)
== END 2023-12-06 23:59 | disposition home or self-care (01) ==
LOC: LAB 10:17
PROVIDERS: PCP Family Medicine; Visit Provider Nurse Practitioner Obstetrics & Gynecology
DX: N39.3 Stress incontinence (female) (male) (principal)
CPT/HCPCS: 36415; 80053; 84702; 85025

== ENCOUNTER 2023-12-11 05:59 | Day surgery (SDC) | payer OTHER, SELFPAY ==
[2023-12-11] VITALS (10 sets, daily range): BP systolic 134–167; BP diastolic 62–87; PULSE 58–101; RESP 18; TEMP 36.1–36.2; O2SAT 92–99; BMI 36.9
[2023-12-11] MEDS: LACTATED RINGERS 1000ML 1,000 ML 25 ML IV (06:35)
[2023-12-11] MEDS: ROPIVACAINE 0.5% 30ML VIAL 450 MG (06:53)
[2023-12-11] MEDS: LIDOCAINE 1% W/EPI 1:100,000 20ML VIAL 20 ML ×3 (06:53→07:43)
[2023-12-11] MEDS: SODIUM CHLORIDE IRRIG SOLUTION 3,000 ML 999 ML IR (06:53)
--- NOTE | 2023-12-11 07:09 | P.PNANES_ITS ---
[facility] Disclaimer: The information contained in this section may have been updated after the patient was seen, as this information can be updated by other users. Medical History Dyspnea on exertion Allergic rhinitis JOSE (obstructive sleep apnea) mild JOSE, excellent compliance on CPAP with symptomatic improvement and without any intolerance Asthma Surgical History Hx of nasal septoplasty Family History Other Alcoholism Cancer Coronary artery disease Diabetes Heart attack Social History (Updated 12/11/23 @ 06:27 by Faith Jorge RN) Smoking Status: Current some day smoker alcohol intake: current alcohol intake frequency: a few times a month substance use type: denies use current occupational status: employed Travel in the last 8 weeks: Inside the [place] household members: spouse housing: house marital status: [facility] Anesthesia Checklist Patient Identification Patient Identification: Arm Band and Family Structural Data Admitted From: Home Planned Operative Procedure/s: Transvaginal Taping. Consent for Planned Operative Procedure(s) Verified: Yes Verified Documents: History and Physical Additional verifications Patient : No Anesthesia Reactions: No Hx Blood Transfusions: No Cephalosporin Allergy: Yes Previous Colonoscopy: No Airway Assessment Mallampati Score:: Class II C-Spine Mobility Assessed: Yes TMJ Mobility Assessed: Yes Dentition: Good Dentition Neurological Assessment Level of Consciousness: Awake, Alert, Appropriate and Follows Commands Hx Seizures: No Numbness or tingling in extremities: No Anesthesia Plan Anesthesia Risk discussed: Yes ASA Class: II Anesthesia Type: General Preoperative Comments Pre-Operative Comments: History of Asthma. Cpap.
[2023-12-11] MEDS: CLINDAMYCIN PHOSPHATE/D5W 900 MG/50 ML PIGGYBACK 100 MG IV (07:38)
--- NOTE | 2023-12-11 08:26 | P.PNANES_ITS ---
[facility] Anesthesia Record Part I Anesthesia Record I Intake, IV Amount: 450 Hydration: Adequate Estimated blood loss (mL): 100 Urine output (mL): 50 Blood Products used (#): none Blood Pressure: 167/85 SaO2: 95 Pulse Rate: 101 Airway Patency: Patent Respiratory Rate: 18 Temperature: 97 F Patient is:: Drowsy and Stable Stable to PACU at:: 08:19
--- NOTE | 2023-12-11 08:39 | EXP.OP.NOTE ---
Date of procedure: 12/11/23 Pre-op Diagnosis:: Genuine stress urinary incontinence Post-op Diagnosis:: Genuine stress urinary incontinence Procedure performed:: Tension-free vaginal tape Surgeon:: Mejia Morales MD KITCHEN BATH DESIGNER:: Thomas Wyatt Anesthesia: LMA Estimated blood loss (mL): 100 Clinical Note:: She is a 38-year-old lady who complains of loss of urine with laughing, coughing and sneezing. This was demonstrated with urodynamics in my office. As result of this she was offered tension-free vaginal tape. The risks and benefits of surgery were discussed with the patient prior to surgery. Operative findings:: She had a normal-appearing vagina. There was a grade 1 cystocele but otherwise no other vaginal issues. The bladder appeared normal at the time of cystoscopy. Operative note:: She was taken to the operating room where LMA anesthesia was found be adequate. She was prepped and draped in normal sterile fashion in the lithotomy position. The bladder was drained. Weighted speculum was placed in the vagina and I injected 20 cc of 1% Xylocaine with epinephrine along the urethra and under the pubic rami bilaterally. I then injected 60 cc of 0.5% ropivacaine along the trocar paths in the space of Retzius with a spinal needle from above. I then grasped the vaginal mucosa with an Allis clamp just below the urethra and then again approximately 3 cm along. Made an incision with knife. I then grasped the edges of the vaginal mucosa and using Metzenbaum scissors dissected out laterally to each pubic rami. I then inserted a catheter in the bladder with an obturator. I pulled it to its ipsilateral side and placed the left side of the tape. I went under the pubic rami, through the urogenital diaphragm and through the space of Retzius. I then passed the catheter out through the skin. Then inspected the bladder with a 70 degree cystoscope. There is no evidence of tape within the bladder. I then pulled the tape through to the midline. The bladder was then drained and once again the obturator was placed within the urethra and pulled to its ipsilateral side. I then placed the right side of the tape in the same fashion as the left side. Once again the bladder was inspected with a 70 degree cystoscope. There was no evidence of tape within the bladder. I then placed a packing forcep under the tape and removed his outer sheath. Once again I tested for tape tension by pushing on the bladder from above. There was no evidence of leakage. The tape was loose. I then cut the tape off at the level of the skin and pulled out the skin. The vaginal mucosa was then closed using interrupted 2-0 Vicryl suture in a mattress fashion. The suprapubic incisions were closed with Dermabond. Sterile dressings were applied. The bladder was then drained. She tolerated procedure well and was taken to the recovery room in excellent condition. All sponge, instrument and needle counts were correct. The estimated blood loss was less than 100 cc. Condition: stable Disposition: PACU Specimens:: None Complications:: None
--- NOTE | 2023-12-11 09:38 | SUR.PHASEII ---
Pt up to BR and unable to void at this time. Message sent to MD, waiting for response. Provided oral fluid and IVF infusing.
--- NOTE | 2023-12-11 10:00 | SUR.PHASEII ---
Cortés catheter 16FR inserted without difficulty, immediately got urine 800cc. Pt tolerated well.
--- NOTE | 2023-12-12 12:36 | EXP.ANES.II ---
[facility] Anesthesia Record Part II Anesthesia Record Part II Discharge Time: 08:49 Destination: Surgical Day Care (OP Surgery) PACU nurse assessment reviewed?: Yes Patient Condition:: Good Anesthesia Complications:: None Swallowing reflex intact?: Yes Airway Patency: Patent Cyanosis?: No Blood Pressure: 134/84 SaO2: 93 Respiratory Rate: 18 Pulse Rate: 88 Temperature: 97 F Mental Status: Alert & Oriented Pain level:: 0 Nausea and/or vomitting:: None Intake, IV Amount: 0 Hydration: Adequate
[2023-12-12 12:37] VITALS: BP 134/84; PULSE 88; RESP 18; TEMP 36.1; O2SAT 93
== END 2023-12-11 10:20 | disposition home or self-care (01) ==
PROVIDERS: PCP Family Medicine; Visit Provider Nurse Practitioner Obstetrics & Gynecology
PROC: (CPT 57288; principal; 2023-12-11 07:30)
DX: N39.3 Stress incontinence (female) (male) (principal)
CPT/HCPCS: 57288; 96374; C1771; J1100; J2250; J2405; J3010; J7120

== ENCOUNTER 2023-12-13 16:24 | Outpatient (CLI) | payer OTHER, SELFPAY | END 2023-12-13 23:59 | disposition home or self-care (01) | LOC: LAB.DROPOF 16:24 | PROVIDERS: PCP Nurse Practitioner Obstetrics & Gynecology; Visit Provider Nurse Practitioner Obstetrics & Gynecology | DX: R32 Unspecified urinary incontinence (principal) | CPT/HCPCS: 87086 ==

== ENCOUNTER 2024-02-13 07:56 | Outpatient (CLI) | payer OTHER, SELFPAY ==
--- NOTE | 2024-02-13 | CA_ITS ---
APPROVED REPORT EXAM: Comprehensive 2D, Doppler, and color-flow Echocardiogram Hide Dyer: VIDHI Friedman, RVS Ht: 5 ft 7 in Wt: 239lbs BSA: 2.18 BP: 136/92 mmHg Indications: Murmur, Shortness of Breath, smoker, JOSE 2D Dimensions Left Atrium 2.00 cm F: 2.7 - 3.8 LA Volume 40.80 mL LA Volume Index 18.72 mL/m2 (M/F) 16-34 M-Mode Dimensions RVDd 2.35 cm (0.9-2.6) LA Diam 2.22 cm (1.9-4.0) LVDd 4.55 cm (3.5-5.7) LVDs 2.72 cm (3.5-5.7) IVSd 1.15 cm (0.6-1.1) PWd 0.90 cm (0.6-1.1) EF (Teich) 71.00% EPSs 0.14 cm FS 40.20% EDV (Teich) 94.90 mL TAPSE 2.13 (<1.7) ESV (Teich) 27.50 mL LV Diastology E Decel Time 170 (160-240 msec) E/A Ratio 2.20 MED A' 8.40 cm/s LAT A' 7.70 cm/s Aortic Valve ANIA Index 0.79 cm2/m2 AoV Peak Jax. 124.0 (50-130 cm/s) AI PHT 258.00 ms AO Peak GR. 6.10 mmHg AO Mean GR. 3.10 (<5 mmHg) AO VTI 27.6 (18-25 cm) ANIA (VTI) 1.77 (2.5-4.5 cm2) Mitral Valve MV A Velocity 48.0 (40-130 cm/s) E/A Ratio 2.20 Tricuspid Valve TR P. Velocity 231.00 cm/s RAP Estimate 10.00 mmHg RVSP 31.30 mmHg Left Ventricle The left ventricle is normal size. The left ventricular systolic function is normal. The left ventricular ejection fraction is within the normal range. There is normal left ventricular wall thickness. There is normal LV segmental wall motion. The left ventricular diastolic function is normal. LVEF is 55%. Right Ventricle The right ventricle is normal size. The right ventricular systolic function is normal. Atria The left atrium size is normal. The right atrium size is normal. There is no Doppler evidence of interatrial shunt. Aortic Valve The aortic valve is normal in structure. There is no aortic valvular stenosis. Mild aortic regurgitation. Mitral Valve The mitral valve is normal in structure. No evidence of mitral valve stenosis. Trace mitral regurgitation. Tricuspid Valve The tricuspid valve leaflets are thin and pliable. Trace tricuspid regurgitation. There is insufficient TR jet to estimate RVSP. Pulmonic Valve The pulmonary valve is normal in structure. Trace pulmonic regurgitation. Great Vessels The aortic root is normal in size. The ascending aorta is not well-visualized. IVC is normal in size and collapses >50% with inspiration. Pericardium There is no pericardial effusion. Other Information Study Quality: Fair Conclusion Normal biventricular systolic function. Mild AI. Electronically signed by : Belle Snow MD 02/16/2024 23:46:08
== END 2024-02-13 23:59 | disposition home or self-care (01) ==
LOC: RT 07:57
PROVIDERS: PCP Family Medicine; Visit Provider Nurse Practitioner Family
DX: R01.1 Cardiac murmur, unspecified (principal)
CPT/HCPCS: 93306

== ENCOUNTER 2024-04-26 11:08 | Emergency (ER) | payer OTHER, SELFPAY ==
--- NOTE | 2024-04-26 11:14 | XR_ITS ---
FINAL REPORT CLINICAL HISTORY: DROPPED OBJECT ON FOOT COMPARISON: None FINDINGS: AP, oblique and lateral views of the right foot were obtained. There is no acute fracture or dislocation. The joint spaces are preserved. Soft tissues are unremarkable. IMPRESSION: No acute osseous abnormality of the right foot. Reviewed, Interpreted and Dictated by Katy Root MD Transcribed by Carey Mae Authenticated and [facility]
[2024-04-26 12:43] VITALS: BP 141/75; PULSE 76; RESP 18; TEMP 36.9; O2SAT 99; BMI 36.8
--- NOTE | 2024-04-26 12:56 | ED_ITS ---
Discharge Plan Disposition Patient Disposition: Home, Self-Care Condition: Good Prescriptions Prescriptions: No Action ipratropium-albuterol 0.5 mg-3 mg(2.5 mg base)/3 mL solution for nebulization 3 ml inhalation Q6H PRN (Reason: shortness of breath or wheezing) Qty: 90 3RF Trelegy Ellipta 200-62.5-25 mcg blister with device 1 inh inhalation DAILY 90 Days Qty: 90 3RF fluticasone propionate [Flonase Allergy Relief] 50 mcg/actuation spray,suspension 2 spray intranasal DAILY 90 Days Qty: 16 2RF Rx Instructions: administer into each nostril montelukast 10 mg tablet 10 mg PO QPM 90 Days Qty: 90 2RF Referrals Follow up/Referrals: Lu Luciano MD [Primary Care Provider] - See instructions Ade Leblanc DPM [Staff Physician] - See instructions Activity Restrictions/Add. Instructions Additional Instructions/Restrictions: Rest the affected extremity, Elevate the extremity as tolerated while you are resting. Take ibuprofen or tylenol for pain. Wear the bianca tape for the next couple of days if it helps your pain. Follow up with Dr. Leblanc (podiatry) if you continue to have symptoms. I put in a referral but you need to call her office and schedule an appointment. Her office phone number will be on this paper work. Follow up with your regular doctor. GO TO THE ER FOR ANY WORSENING SYMPTOMS Clinical Impressions Clinical Impression: Pain in right foot, Contusion of right foot Instructions Patient Instructions: Contusion, DI for Contusion, How to Bianca Tape Print Language Print Language: Latvian Discharge ED Provider: Thomas Aguirre [facility] General Stated complaint: poss broken toe, right foot pain Mode of Arrival: Ambulatory Source of Information: Patient Time Seen by Provider: 04/26/24 12:53 Description of Symptoms (Recalled from Triage Doc. by RN): RIGHT FOOT INJURY FROM DROPPING GLASS JAR ON IT HEENT Symptoms (Recalled from RN notes): No Resp Symptoms (Recalled from RN notes): No Skin Symptoms (Recalled from RN notes): No MS Symptoms (Recalled from RN notes): Yes Functional Status (Recalled from RN notes): WNL Related Data Previous Rx's ?Medication ?Instructions ?Recorded fluticasone fur. 200 mcg-umeclid 1 inh inhalation DAILY 90 days #90 06/07/23 62.5 mcg-vilant 25 mcg ea inhalat.powder (Trelegy Ellipta) fluticasone propionate 50 2 spray intranasal DAILY 90 days 06/07/23 mcg/actuation nasal #16 grams spray,suspension (Flonase Allergy Relief) ipratropium 0.5 mg-albuterol 3 mg 3 ml inhalation Q6H PRN shortness 06/07/23 (2.5 mg base)/3 mL nebulization of breath or wheezing #90 mL soln montelukast 10 mg tablet 10 mg PO QPM 90 days #90 tabs 06/07/23 Allergies Allergy/AdvReac Type Severity Reaction Status Date / Time cefaclor Allergy Intermediate I-HIVES Verified 12/26/23 14:18 Worker's Comp Is this a Worker's Comp case?: No [facility] Disclaimer: The information contained in this section may have been updated after the patient was seen, as this information can be updated by other users. Medical History Dyspnea on exertion Allergic rhinitis JOSE (obstructive sleep apnea) mild JOSE, excellent compliance on CPAP with symptomatic improvement and without any intolerance Asthma Surgical History History of bladder surgery Hx of nasal septoplasty Family History Other Alcoholism Cancer Coronary artery disease Diabetes Heart attack Social History Smoking Status: Current some day smoker alcohol intake: current alcohol intake frequency: a few times a month substance use type: denies use current occupational status: employed Travel in the last 8 weeks: Inside the [place] household members: spouse housing: house marital status: ROS Obtained: Yes All systems reviewed & no additional complaints except as documented Constitutional Constitutional: Denies chills and Denies fever(s) Eyes Eyes: Denies eye discharge ENT Ears, Nose, Mouth, and Throat: Denies dizziness, Denies otalgia and Denies sore throat Cardiovascular Cardiovascular: Denies chest pain Respiratory Respiratory: Denies shortness of breath, Denies chest congestion, Denies cough, Denies stridor and Denies wheezing Gastrointestinal Gastrointestingal: Denies nausea or vomiting Musculoskeletal Musculoskeletal: Reports as per HPI Integumentary/Breasts Skin/Breast: Denies rash Neurologic Neurologic: Denies dizziness and Denies paresthesias Allergic/Immunologic Allergic/Immunologic: Denies wheezing Physical Exam General General appearance: alert and in no apparent distress Head Head exam: atraumatic, normocephalic and normal inspection Eye Eye exam: Present normal appearance, PERRL and EOMI ENT ENT exam: Present normal exam, normal oropharynx, mucous membranes moist, TM's normal bilaterally and normal external ear exam Neck Neck exam: Present normal inspection, full ROM and trachea midline; Absent meningismus or lymphadenopathy Chest Chest inspection: Present normal inspection and symmetric chest wall rise; Absent tenderness Respiratory Respiratory exam: Present normal lung sounds bilaterally; Absent respiratory distress Cardiovascular Cardiovascular exam: Present regular rate and normal rhythm; Absent JVD Abdominal Exam Abdominal exam: Present soft and normal bowel sounds; Absent distention, tenderness or guarding Extremities Exam Extremities exam: Present normal inspection, full ROM and normal capillary refill; Absent calf tenderness Back Exam Back exam: Present normal inspection; Absent tenderness Neurological Exam Neurological exam: Present alert and oriented X3 Psychiatric Psychiatric exam: Present normal affect and normal mood Skin Skin exam: Present warm, dry, intact and normal color Lymphatic Lymphatic Findings: no adenopathy Medical Decision Making Medical Records Medical records reviewed: No I reviewed the patient's medical records. Screening: Per USPSTF and CDC recommendations, given the prevalence of disease in our region, it is our hospital?s policy to screen for HIV and viral Hepatitis for all patients aged 18 and over and those with ongoing risk factors. [place] Inquiry Pt receiving controlled substance: No Vital Signs: 04/26/24 12:43 Temperature 98.5 F Temperature Source Oral Pulse Rate [Left Radial] 76 Respiratory Rate 18 Blood Pressure [Left Arm] 141/75 H Blood Pressure Mean [Left Arm] 97 02 Sat by Pulse Oximetry 99 Orders (Tests/Meds): ORDERS Category Date Time Status XR foot RT min 3V Stat Exams 04/26/24 11:14 Completed
[2024-04-26 13:15] VITALS: BP 141/75; PULSE 76; RESP 20; TEMP 36.9
== END 2024-04-26 13:16 | disposition home or self-care (01) ==
PROVIDERS: Emergency Provider Nurse Practitioner Family; PCP Family Medicine
DX: S90.31XA Contusion of right foot, initial encounter (principal); W20.8XXA Other cause of strike by thrown, projected or falling object, initial encounter
CPT/HCPCS: 73630; 99213; G0381

== ENCOUNTER 2024-12-10 15:03 | Emergency (ER) | payer OTHER, SELFPAY ==
--- OUTSIDE RECORDS SUMMARY | 2023-10-18 10:30 | XMS_ITS ---
Author Organization Alessandra Address [address] [facility] [address] [place] [id number] Care Team Providers Care Retinal Surgeon Name Role Phone Maurice Purcell Primary Care Provider Zee Richardson Unavailable [phone] Rachell Dawson Unavailable [phone] Allergies Allergen (clinical drug ingredient) Drug/Non Drug [...] Provider Diagnosis [facility] [address] [place] [phone] 10/18/2023 Rachell Dawson Routine physical examination Z00.00 [...] Notes * Lex BARNETTeDOB:1985 (39 yo F)Acc No.[id number]:10/18/2023 Physical Patient: Lucy GARCIA Provider: DANN Rosado :1985 A ge:38 Y S ex:Female Date:10/18/2023 Address:[address] [place] [address] [id number] Pcp:Maurice Purecll Subjective: * Chief Complaints: * 1 . Physical for insurance. * HPI: H PI: Patient is here today for a n insurance physical. The pt had labs completed this morning at [facility]. * ROS: D ERMATOLOGY: no R rizwana. n o H corrina. G ASTROENTEROLOGY: no V omiting. n o D iarrhea. U ROLOGY: no D ifficulty urinating. n o B lood in urine. * Medical History: A sthma, Pancreatitis. * Hospitalization/Major Diagno stic Procedure: P ancreatitis- [facility] ER 07/2014. * Family History: F [...] leg edema. Assessment: * [facility]. [facility] (Primary) Plan: * Treatment: * Follow Up: 3 months * Images: Billing Information: * Visit Code: 13997 Preventive Care Est Pt 18-39. * Procedure Codes: * Electronic signature of DANN Quinn on 12/10/2024 at 03:48 PM EDT Sign off status: Pending * Provider: DANN Rosado Date: 10/18/2023 Generated for Arnold leon/Darlene/eTbubbaitting on: 0 12/10/2024 03:48 PM EDT History and Physical Notes * HPI (History of Present Illness) Category Sub-Category Detail Notes Category Not es HPI Patient is here today for an ins urance physical. The pt had labs completed this morning at [facility] Examination Category Sub-Category Detail Notes Category [...]
--- OUTSIDE RECORDS SUMMARY | 2024-02-26 06:30 | XMS_ITS ---
Author Organization [facility] Address [address] [facility] [address] [phone] Care Team Providers Care Cdl A Driver Name Role Phone Maurice Purcell Primary Care Provider Zee Richardson Unavailable [phone] Allergies Allergen (clinical drug ingredient) Drug/Non Drug [...] [address] [place] [id number] 02/26/2024 Zee Richardson Weight loss R63.4 Assessments [...] Notes * Marion BARNETTOB:1985 (39 yo F)Acc No.[id number]:02/26/2024 Progress Notes Patient: Lucy GARCIA Provider: JIMENA Lacy :1985 A ge:38 Y S ex:Female Date:02/26/2024 Address:[address] [place] [address], [id number] Pcp:Maurice Purcell Subjective: * Chief Complaints: * 1 . Discuss Weight Loss Medication. * HPI: C onstitutional: 38 year old female presents with c/o weight loss P t would like to discuss weight loss medication today. 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 * Family History: F [...] * Images: Billing Information: * Visit Code: 75689 Office Visit, Est Pt., Level 4. * Procedure Codes: 01042 PULSE OX. 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
[2024-12-10 15:13] VITALS: BP 131/65; PULSE 82; RESP 18; TEMP 36.9; O2SAT 99; BMI 37.5
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
--- NOTE | 2024-12-10 17:04 | XR_ITS ---
PROCEDURE INFORMATION: Exam: XR Right Forearm Exam date and time: 12/10/2024 7:48 PM Age: 39 years old Clinical indication: Pain; Lower or forearm; Right TECHNIQUE: Imaging protocol: Radiologic exam of the right forearm. Views: 2 views. COMPARISON: No relevant prior studies available. FINDINGS: Bones/joints: See Soft tissues finding. Soft tissues: Mild right forearm soft tissue swelling without acute osseous abnormality. IMPRESSION: Mild right forearm soft tissue swelling without acute osseous abnormality.
--- NOTE | 2024-12-10 17:07 | HMH.ITSTN ---
spoke to Lesia about needing a preg test
[2024-12-10] MEDS: MORPHINE 4MG/ML SYRINGE 4 MG IV (17:31)
[2024-12-10] MEDS: ONDANSETRON 4MG/2ML VIAL 4 MG IV (17:31)
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
[2024-12-10 17:50] LABS: Hematocrit 38.7 % (37.0-47.0); Hemoglobin 12.0 g/dL (12.2-16.2); Immature Granulocytes % 0.2 %; Mean Corpuscular HGB Conc 31.0 g/dL (31.8-35.4); Mean Corpuscular Hemoglobin 27.1 pg (27.0-31.2); Mean Corpuscular Volume 87.6 fl (81-99); Nucleated Red Blood Cells % 0 %; Platelet Count 388 K/mm3 (142-424); Red Blood Count 4.42 M/mm3 (4.20-5.40); Red Cell Distribution Width-SD 46.0 fL; White Blood Count 5.0 K/mm3 (4.8-10.8)
[2024-12-10 17:52] LABS: Alanine Aminotransferase 29 U/L (12-78); Albumin Level 4.6 g/dl (3.5-5.0); Albumin/Globulin Ratio 1.4 (1.1-1.8); Alkaline Phosphatase 111 U/L (38-126); Anion Gap 15.0 mEq/L (5-15); Aspartate Amino Transferase 26 U/L (14-36); Bilirubin,Total 0.6 mg/dl (0.2-1.3); Blood Urea Nitrogen 16 mg/dl (7-17); Calcium 10.0 mg/dl (8.4-10.2); Carbon Dioxide 29 mmol/L (22.0-30.0); Chloride 101 mmol/L (98-107); Creatinine Clearance Estimated 161 mL/min (50-200); Creatinine,Serum 0.80 mg/dl (0.52-1.04); Estimated Glomerular Filt Rate 79 ml/min (>60); GFR (African American) 96 ML/MIN (>60); Globulin 3.4 g/dL (1.3-3.2); Glucose 92 mg/dl (74-100); Magnesium 2.1 mg/dl (1.6-2.3); Potassium 4.0 mmoL/L (3.5-5.1); Sodium 141 mmol/L (136-145); Total Protein,Serum 8.0 g/dl (6.3-8.2)
[2024-12-10 18:06] LABS: Troponin I < 0.01 ng/ml (0.00-0.034)
[2024-12-10 18:47] VITALS: BP 120/60; PULSE 68; TEMP 36.8; O2SAT 99
[2024-12-10 19:31] LABS: HCG Qualitative, Serum Negative (Negative)
[2024-12-10 20:45] LABS: Microscopic, Urine URINE MICROSCOPIC (MICROSCOPIC)
[2024-12-10 20:49] LABS: Bilirubin,Urine Negative (Negative); Color,Urine YELLOW (Yellow); Glucose,Urine (UA) Negative (Negative); Ketones,Urine Negative (Negative); Leukocyte Esterase,Urine Negative (Negative); PH,Urine 6.0 (5.0-8.5); Protein,Urine Negative (Negative); Specific Gravity, Urine 1.025 (1.005-1.030); Urine Pregnancy, HCG Qual. Negative (Negative); Urobilinogen,Urine 0.2 EU/dl (0.2)
[2024-12-10 21:11] LABS: Amorphous Sediment,Urine 3+ /lpf
[2024-12-10 21:44] VITALS: BP 122/56; PULSE 62; RESP 16; TEMP 36.7; O2SAT 99
== END 2024-12-10 21:46 | disposition home or self-care (01) ==
PROVIDERS: Nurse Practitioner; Emergency Provider Student in an Organized Health Care Education/Training Program; PCP Family Medicine
DX: S06.0X0A Concussion without loss of consciousness, initial encounter (principal); M54.2 Cervicalgia; M79.604 Pain in right leg; S00.81XA Abrasion of other part of head, initial encounter; R11.0 Nausea; V49.50XA Passenger injured in collision with unspecified motor vehicles in traffic accident, initial encounter; Y92.410 Unspecified street and highway as the place of occurrence of the external cause
CPT/HCPCS: 70450; 72125; 72128; 72131; 72170; 73090; 80053; 81001; 81025; 83735; 84484; 84703; 85025; 96374; 96375; 99285; J2270; J2405

== ENCOUNTER 2024-12-12 16:58 | Emergency (ER) | payer OTHER, SELFPAY ==
--- OUTSIDE RECORDS SUMMARY | 2023-10-18 10:30 | XMS_ITS ---
Author Organization [facility]essandra Address [address]10 [facility] [address] [place] [id number] Care Team Providers Care Sky Diver Name Role Phone Maurice Purcell Primary Care Provider Zee Richardson Unavailable [phone] Rachell Dawson Unavailable [phone] Allergies Allergen (clinical drug ingredient) Drug/Non Drug Allergy documented on EMR Reaction Allergy Type Onset Date Status cefaclor Cefaclor Unknown Drug Allergy Active REASON FOR VISIT physical for insurance Medications Medication SIG (Take, Route, Frequency, Duration) Notes Start Date End Date Status Breo Ellipta 100-25 MCG/ACT 1 puff(s) inhaled once a day Active ProAir Digihaler 108 (90 Base) MCG/ACT 2 puff(s) inhaled 4 times a day, prn Active Albuterol Sulfate (2.5 MG/3ML) 0.083% 3 ml as needed Inhalation every 6 hrs, prn Active Nebulizer System All-In-One - as directed Active Vital Signs Blood pressure systolic 130 mm Hg 10/18/19 24 Blood pressure diastolic 84 mm Hg 024 Heart Rate 74 /min 10/18/2023 Height 67 in 10/18/2023 Weight 232.6 lbs 10/18/2023 BMI 36.43 kg/m2 10/18/2023 Encounters Encounter Location Date Provider Diagnosis [facility] [address] [place] [phone] 10/18/2023 Rachell Dawson Routine physical examination Z00.00 Assessments Encounter Date Diagnosis (ICD Code) Assessment Notes Treatment Notes Treatment Clinical Notes Section Notes 10/18/2023 Routine physical examination (ICD-10 - Z00.00) Healthy female. See lab results in patient docs. Will need to get back on her Vit D and B12 as she has quit taking them and recheck in 3 months. Plan Of Treatment Treatment Notes Assessment Notes Routine physical examination Healthy fem juliann. See lab results in patient docs. Will need to get back on her Vit D and B12 as she has quit taking them and recheck in 3 months. Next Appt Details Follow Up: 3 months, Reason: Progress Notes * Lex BARNETTeDOB:1985 (39 yo F)Acc No.[id number]:10/18/2023 Physical Patient: Lucy GARCIA Provider: DANN Rosado :1985 A ge:38 Y S ex:Female Date:10/18/2023 Address:[address] [place] [address] [id number] Pcp:Maurice Purcell Subjective: * Chief Complaints: * 1 . Physical for insurance. * HPI: H PI: Patient is here today for a n insurance physical. The pt had labs completed this morning at [facility]. * ROS: D ERMATOLOGY: no R rizwana. n o H corrina. G ASTROENTEROLOGY: no V omiting. n o D iarrhea. U ROLOGY: no D ifficulty urinating. n o B lood in urine. * Medical History: A sthma, Pancreatitis. * Hospitalization/Major Diagno stic Procedure: P ancreatitis- [facility] ER 07/2014. * Family History: F ather: , alcohol abuse. M other: alive. 2 brother(s) , 2 sister(s) . . * Social History: C URRENT TOBACCO USE S moking Status: Patient does NOT smoke. C affeine: yes, frequency:. Marital Status: . Past smoking status: no, Smoking status: Does not smoke, Second hand smoke exposure: No. * Medications: T aking Breo Ellipta 100-25 MCG/ACT Aerosol Powder Breath Activated 1 puff(s) inhaled once a day , Taking ProAir Digihaler 108 (90 Base) MCG/ACT Aerosol Powder Breath Activated 2 puff(s) inhaled 4 times a day, prn , Taking Albuterol Sulfate (2.5 MG/3ML) 0.083% Nebulization Solution 3 ml as needed Inhalation every 6 hrs, prn , Taking Nebulizer System All-In-One - Miscellaneous as directed , Discontinued predniSONE 20 MG Tablet 1 tablet Orally Two times a day , Discontinued Mometasone Furoate 50 MCG/ACT Suspension 2 spray(s) intranasally once a day , Discontinued Medrol 4 MG Tablet Therapy Pack as directed orally daily , Medication List reviewed and reconciled with the patient * Allergies: C efaclor. Objective: * Vitals: W t:232.6, Temp:98.0, BP:130/84, HR:74, Nurse:yani, Ht: 67, BMI:36.43. * Examination: G eneral Examination: General Appearance: N AD. H EENT: u nremarkable.?Oral cavity: n o lesions, mucosa moist and WNL, no erythema. N krystal: s upple, no lymphadenopathy. C hest: n ormal shape and expansion. H eart: R SR. L ungs: c lear to auscultation. A bdomen: bowel sounds present, soft and nontender, no organomegaly or masses, no guarding or rigidity. N eurologic Exam: I ntact, gait normal. S kin: n ormal, no rash. P eripheral pulses: n ormal (2+) bilaterally. E xtremities: n o leg edema. Assessment: * [facility]: [facility]. [facility] (Primary) Plan: * Treatment: * Follow Up: 3 months * Images: Billing Information: * Visit Code: 25714 Preventive Care Est Pt 18-39. * Procedure Codes: * Electronic signature of DANN Quinn on 12/12/2024 at 05:13 PM EDT Sign off status: Pending * Provider: DANN Rosado Date: 10/18/2023 Generated for Arnold leon/Darlene/Marlonitting on: 12/12/2024 05:13 PM EDT History and Physical Notes * HPI (History of Present Illness) Category Sub-Category Detail Notes Category Not es HPI Patient is here today for an ins urance physical. The pt had labs completed this morning at [facility] Examination Category Sub-Category Detail Notes Category Not es General Examination HEENT: unremarkable Heart: RSR Lungs: clear to auscultatio n Abdomen: bowel sounds present , soft and nontender, no organomegaly or masses, no guarding or rigidity Extremities: no leg edema General Appearance: NAD Skin: normal, no rash Neurologic Exam: Intact, gait normal Neck: supple, no lymphaden opathy Oral cavity: no lesions, mucosa m oist and WNL, no erythema Peripheral pulses: normal (2+) bilatera lly Chest: normal shape and exp ansion
--- OUTSIDE RECORDS SUMMARY | 2024-02-05 10:00 | XMS_ITS ---
Author Organization [facility] Address 1210 [facility] [address] [phone] Care Team Providers Care Continuous Process Rotary Drum Tanner Name Role Phone Maurice Purcell Primary Care Provider Zee Richardson Unavailable [phone] Allergies Allergen (clinical drug ingredient) Drug/Non Drug Allergy documented on EMR Reaction Allergy Type Onset Date Status cefaclor Cefaclor Unknown Drug Allergy Active Results Component Value Reference Range Notes Echocardiogram Reviewed date:02/20/2024 02:37:07 PM Interpretation:mild AI Performing Lab: Notes/Report: mild AI Echocardiogram Reviewed date:02/20/2024 02:37:07 PM Interpretation:mild AI Performing Lab: Notes/Report: mild AI REASON FOR VISIT Follow Up - Possible Murmur Medications Medication SIG (Take, Route, Frequency, Duration) Notes Start Date End Date Status Levocetirizine Dihydrochloride 5 MG 1 tablet in the evening Orally Once a day; Duration: 30 day(s) Active Albuterol Sulfate (2.5 MG/3ML) 0.083% 3 ml as needed Inhalation every 6 hrs, prn Active ProAir Digihaler 108 (90 Base) MCG/ACT 2 puff(s) inhaled 4 times a day, prn Active Nebulizer System All-In-One - as directed Active Ryaltris 665-25 MCG/ACT 4 sprays (2 spra ys in each nostril) Nasally Twice a day; Duration: 30 day(s) Active Vital Signs Blood pressure systolic 140 mm Hg 02/05/20 24 Blood pressure diastolic 70 mm Hg 024 Heart Rate 96 /min 02/05/2024 Height 67 in 02/05/2024 Weight 234.4 lbs 02/05/2024 BMI 36.71 kg/m2 02/05/2024 Encounters Encounter Location Date Provider Diagnosis [facility] [address] [place] [phone] 02/05/2024 Zee Richardson Heart murmur R01.1 Assessments Encounter Date Diagnosis (ICD Code) Assessment Notes Treatment Notes Treatment Clinical Notes Section Notes 02/05/2024 Heart murmur (ICD-10 - R01.1) Plan Of Treatment Next Appt Details Follow Up: prn, Reason: Progress Notes * Lex BARNETTeDOB:1985 (39 yo F)Acc No.[id number]:02/05/2024 Progress Notes Patient: Lucy GARCIA Provider: JIMENA Lacy :1985 A ge:38 Y S ex:Female Date:02/05/2024 Address:[address] [place] [phone] Pcp:Maurice Purcell Subjective: * Chief Complaints: * 1 . Follow Up - Possible Murmur. * HPI: C ardiology: 38 year old female presents with c/o Short of Breath w ith exertion and with change of position. c/o Palpitations t wice a week. c/o Leg Edema.? c/o Heart Murmur P t presents today for a follow up from pulmonology. Pt sts that her asthma specialist told her that she has a heart murmur. Pt is concerned about this and wanted to come in to see what her next steps may be. Please see consult note for 02/02/24. 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 Pt sts she has had a heavy pounding and shortness of breath when rolling over in bed. Pt sts she does get winded on occasion, but it unsure if this has to do with the murmur or her weight. Pt sts she has no other concerns or complaints at this time. Denies : Chest Pain. asthma MD note reviewed. * ROS: D ERMATOLOGY: no R rizwana. n o H corrina. G ASTROENTEROLOGY: no V omiting. n o D iarrhea. U ROLOGY: no D ifficulty urinating. n o B lood in urine. * Medical History: A sthma, Pancreatitis. * Hospitalization/Major Diagno stic Procedure: P ancreatitis- [facility] ER 07/2014. * Family History: F ather: , alcohol abuse. M other: alive. 2 brother(s) , 2 sister(s) . . * Social History: C URRENT TOBACCO USE S moking Status: Patient does NOT smoke. C affeine: yes, frequency:. Marital Status: . Past smoking status: no, Smoking status: Does not smoke, Second hand smoke exposure: No. * Medications: T aking Levocetirizine Dihydrochloride 5 MG Tablet 1 tablet in the evening Orally Once a day , Taking Ryaltris 665-25 MCG/ACT Suspension 4 sprays (2 sprays in each nostril) Nasally Twice a day , Taking ProAir Digihaler 108 (90 Base) MCG/ACT Aerosol Powder Breath Activated 2 puff(s) inhaled 4 times a day, prn , Taking Albuterol Sulfate (2.5 MG/3ML) 0.083% Nebulization Solution 3 ml as needed Inhalation every 6 hrs, prn , Taking Nebulizer System All-In-One - Miscellaneous as directed , Medication List reviewed and reconciled with the patient * Allergies: C efaclor. Objective: * Vitals: W t:234.4, Temp:98.3, BP:140/70, HR:96, O2 Sat:99% on RA, Nurse:DANIELE, Ht: 67, BMI:36.71. * Examination: G eneral Examination: General Appearance: NAD, appears healthy, alert, pleasant. H eart: RRR; murmur. L ungs: CTAB A&P. Assessment: * Assessment: 1. H eart murmur - R01.1 (Primary) Plan: * Treatment: * Procedure Codes: 9 4760 PULSE OX * Follow Up: p rn * Images: Billing Information: * Visit Code: 80778 Office Visit, Est Pt., Level 3. * Procedure Codes: 36087 PULSE OX. * Electronic signature of Carol godinez Debra , BINDER COVERSTITCH on 12/12/2024 at 05:13 PM EDT Sign off status: Pending * Provider: JIMENA Lacy Date: 0 02/05/2024 Generated for Arnold leon/Darlene/Elda on: 0 12/12/2024 05:13 PM EDT History and Physical Notes * HPI (History of Present Illness) Category Sub-Category Detail Notes Category Not es Cardiology Short of Breath with exertion and with ch [place] of position asthma MD note reviewed Chest Pain Palpitations twice a week Leg Edema Heart Murmur Pt presents today fo r a follow up from pulmonology. Pt sts that her asthma specialist told her that she has a heart murmur. Pt is concerned about this and wanted to come in to see what her next steps may be. Please see consult note for 02/02/24. 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 Pt sts she has had a heavy pounding and shortness of breath when rolling over in bed. Pt sts she does get winded on occasion, but it unsure if this has to do with the murmur or her weight. Pt sts she has no other concerns or complaints at this time Examination Category Sub-Category Detail Notes Category Not es General Examination Heart: RRR; murmur Lungs: CTAB A&P General Appearance: NAD, appears healthy , alert, pleasant
--- OUTSIDE RECORDS SUMMARY | 2024-02-26 06:30 | XMS_ITS ---
Author Organization [facility] Address [address] [facility] [address] [id number] Care Team Providers Care Granulator Operator Name Role Phone Maurice Purcell Primary Care Provider Zee Richardson Unavailable [phone] Allergies Allergen (clinical drug ingredient) Drug/Non Drug Allergy documented on EMR Reaction Allergy Type Onset Date Status cefaclor Cefaclor Unknown Drug Allergy Active REASON FOR VISIT Discuss Weight Loss Medication Medications Medication SIG (Take, Route, Frequency, Duration) Notes Start Date End Date Status Albuterol Sulfate (2.5 MG/3ML) 0.083% 3 ml as needed Inhalation every 6 hrs, prn Active Nebulizer System All-In-One - as directed Active Levocetirizine Dihydrochloride 5 MG 1 tablet in the evening Orally Once a day; Duration: 30 day(s) Active Ryaltris 665-25 MCG/ACT 4 sprays (2 spra ys in each nostril) Nasally Twice a day; Duration: 30 day(s) Active ProAir Digihaler 108 (90 Base) MCG/ACT 2 puff(s) inhaled 4 times a day, prn Active Zepbound 2.5 MG/0.5ML 0.5 ml Subcutaneou s weekly; Duration: 30 days 02/26/2024 Active Vital Signs Blood pressure systolic 130 mm Hg 02/26/20 24 Blood pressure diastolic 70 mm Hg 024 Heart Rate 66 /min 02/26/2024 Height 67 in 02/26/2024 Weight 242.4 lbs 02/26/2024 BMI 37.96 kg/m2 02/26/2024 Encounters Encounter Location Date Provider Diagnosis [facility] [address] [place] [id number] 02/26/2024 Zee Richardson Weight loss R63.4 Assessments Encounter Date Diagnosis (ICD Code) Assessment Notes Treatment Notes Treatment Clinical Notes Section Notes 02/26/2024 Weight loss (ICD-10 - R63.4) discussed diet and portion control and to eat several times daily; if insurance approves med, to RTC 4 weeks after starting Plan Of Treatment Medication Medication Name Sig Start Date Stop Date Notes Zepbound 2.5 MG/0.5ML 0.5 ml Subcutaneou s weekly; Duration: 30 days 02/26/2024 Treatment Notes Assessment Notes Weight loss discussed diet and p ortion control and to eat several times daily; if insurance approves med, to RTC 4 weeks after starting Progress Notes * Marion BARNETTOB:1985 (39 yo F)Acc No.[id number]:02/26/2024 Progress Notes Patient: Lucy GARCIA Provider: JIMENA Lacy :1985 A ge:38 Y S ex:Female Date:02/26/2024 Address:[address] [place] [address], [id number] Pcp:Maurice Purcell Subjective: * Chief Complaints: * 1 . Discuss Weight Loss Medication. * HPI: C onstitutional: 38 year old female presents with c/o weight loss P t would like to discuss weight loss medication today. 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 * ROS: D ERMATOLOGY: no R rizwana. n o H corrina. G ASTROENTEROLOGY: no V omiting. n o D iarrhea. U ROLOGY: no D ifficulty urinating. n o B lood in urine. * Medical History: A sthma, Pancreatitis. * Hospitalization/Major Diagno stic Procedure: P ancreatitis- [facility] 07/2014. * Family History: F ather: [...] Allergies: C efaclor. Objective: * Vitals: W t:242.4, Temp:98.8, BP:130/70, HR:66, O2 Sat:98% on RA, Nurse:DANIELE, Ht: 67, BMI:37.96. * Examination: G eneral Examination: General Appearance: NAD, appears healthy, alert, pleasant; weight increase noted. H eart: RRR. L ungs: CTAB A&P. N eurologic Exam: alert and oriented. E xtremities: no leg edema. previous labs reviewed. Assessment: * Assessment: 1. W eight loss - R63.4 (Primary) Plan: * Treatment: * Procedure Codes: 9 4760 PULSE OX * Images: Billing Information: * Visit Code: 57215 Office Visit, Est Pt., Level 4. * Procedure Codes: 86444 PULSE OX. 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
[2024-12-12 17:04] VITALS: BP 148/82; PULSE 73; RESP 19; O2SAT 99
[2024-12-12 17:11] VITALS: BP 148/82; PULSE 63; RESP 18; TEMP 36.8; O2SAT 98; BMI 37.5
--- NOTE | 2024-12-12 17:12 | XR_ITS ---
PROCEDURE INFORMATION: Exam: XR Left Foot Exam date and time: 12/12/2024 5:52 PM Age: 39 years old Clinical indication: Pain; Foot; Left; Additional info: Toe pain TECHNIQUE: Imaging protocol: Radiologic exam of the left foot. Views: 3 or more views. COMPARISON: CR XR FOOT WT BEARING LT 3V 10/28/2019 8:32 AM FINDINGS: Bones/joints: Intermediate sized enthesophytes involving the calcaneus. Soft tissues: Normal. IMPRESSION: No acute findings.
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
--- OUTSIDE RECORDS SUMMARY | 2024-12-12 17:14 | XMS_ITS | Patient Health Record ---
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 Name Role Phone Maurice Purcell Primary Care Provider Zee Richardson Unavailable [phone] Allergies Allergen (clinical drug ingredient) Drug/Non Drug Allergy documented on EMR Reaction Allergy Type Onset Date Status cefaclor Cefaclor Unknown Drug Allergy Active Results Component Value Reference Range Notes Echocardiogram Reviewed date:02/20/2024 02:37:07 PM Interpretation:mild AI Performing Lab: Notes/Report: mild AI Echocardiogram Reviewed date:02/20/2024 02:37:07 PM Interpretation:mild AI Performing Lab: Notes/Report: mild AI Reason For Referral No Information Medications Medication SIG (Take, Route, Frequency, Duration) Notes Start Date End Date Status Zepbound 2.5 MG/0.5ML 0.5 ml Subcutaneou s weekly; Duration: 30 days 02/26/2024 Active Albuterol Sulfate (2.5 MG/3ML) 0.083% 3 [...] inhaled 4 times a day, prn Active Problems Problem Type SNOMED Code ICD Code Onset Dates Problem Status W/U Status Risk Notes Problem Vitamin D deficiency (16570852) Vitamin D deficiency (E55.9) Active confirmed Problem Obstructive sleep apnea (65663062) Obstructive sleep apnea (G47.33) Active confirmed Problem Exacerbation of moderate persistent asthma (disorder) (451627991) Moderate persistent asthma with exacerbation (J45.41) Active confirmed Vital Signs Heart Rate 66 /min 02/26/2024 Blood pressure diastolic 70 mm Hg 02/26/2024 Height 67 in 02/26/2024 Blood pressure systolic 130 mm Hg 02/26/2024 Weight 242.4 lbs 02/26/2024 BMI 37.96 kg/m2 02/26/2024 Encounters Encounter Location Date [facility] [address] [place] [address] 36 [facility] [address] [place] Ortega [id number] 02/05/2024 Zee Richardson Heart [facility]ur R01.1 [facility] [place] [id number] 02/26/2024 Zee Richardson Weight loss R63.4 [facility] [address] [place] [address] [address] [facility] [address] [place] Ortega [id number] 02/26/2024 Maurice Purcell Assessments Encounter Date Diagnosis (ICD Code) Assessment Notes Treatment Notes Treatment Clinical Notes Section Notes 02/05/2024 Heart murmur (ICD-10 - R01.1) 02/26/2024 Weight loss (ICD-10 - R63.4) discussed diet and portion control and to eat several times daily; if insurance approves med, to RTC 4 weeks after starting Plan Of Treatment No Information Insurance Providers Payer Name Payer Address Payer Phone Subscriber Number Group Number Insured Name Patient Relationship to Insured Coverage Start Date Coverage End Date [facility] [address] [place] [address] [id number] Lucy Palomares Self - patient is the insured [facility] [address] [place], [place] [id number] Lucy Palomares Self - patient is the insured Medications Administered Medication Instructions Date of Administration Dosage Notes allergy 05/18/2015 0.10 mL allergy 05/18/2015 0.10 mL allergy 06/05/2015 0.15 mL allergy 06/05/2015 0.15 mL allergy 06/16/2015 .20 mL allergy 06/16/2015 .20 mL Medical (General) History Medical History History ICD Code Asthma Pancreatitis Surgical History Surgery Date(Month/Year) Hospitalization History Reason Date(Month/Year) Pancreatitis- [facility] ER 07/2014
[2024-12-12 17:30] VITALS: BP 127/66; PULSE 69; RESP 17; O2SAT 99
[2024-12-12 18:00] VITALS: BP 123/71; PULSE 70; RESP 17; O2SAT 99
[2024-12-12 18:20] VITALS: BP 127/71; PULSE 78; RESP 19; TEMP 37.1; O2SAT 98
== END 2024-12-12 18:21 | disposition home or self-care (01) ==
PROVIDERS: Emergency Provider Emergency Medicine; PCP Family Medicine
DX: M79.675 Pain in left toe(s) (principal); T14.8XXA Other injury of unspecified body region, initial encounter
CPT/HCPCS: 73630; 99283